=== PATIENT | male | born 1990 | race Asian ===

== ENCOUNTER 2016-11-22 15:56 | Emergency (ER) | payer SELFPAY ==
[~2016-11-22] VITALS: Wt 63.0 kg
[~2016-11-22 15:56] MED LIST: FAMO-18 PO; GABA-526 PO; METO100T13 PO; NAPR-260 PO; SERT100T PO
== END 2016-11-22 20:51 | disposition left against medical advice (07) ==
LOC: FTE 15:56
DX: Z53.21 Procedure and treatment not carried out due to patient leaving prior to being seen by health care provider (principal)